=== PATIENT | female | born 1955 | race Caucasian/White ===

== ENCOUNTER → 2020-06-24 | Day surgery (SDC) | payer OTHER ==
[~2020-06-24] MED LIST: AMLODIPINE BES2.5 MG PO; BACLOFEN 10MG T10 MG PO; DOXYCYCLINE HY100 MG PO; FLAGYL250 MG PO; HCTZ25 MG PO; MEDROL 4MG DOSEP4 MG PO; NAPROXEN500 MG PO; PANTOPRAZOLE SO40 MG PO; VALSARTAN-HCTZ1 EAC1 PO; VALSARTAN80 MG PO
[2020-06-24 07:41] LABS: HCT 50.3 % (37.0-47.0); MCH 29.9 pg (25.0-31.0); MCHC 33.8 g/dL (32.0-36.0); MCV 88.4 fL (78.0-100.0); MPV 10.7 fL (6.0-9.5); RBC 5.69 M/uL (4.20-5.40); RDW 12.3 % (11.5-14.0); WBC 6.7 K/uL (4.0-10.5)
[2020-06-24 08:07] LABS: ALBUMIN 4.1 g/dL (3.4-5.0); BILIRUBIN - TOTAL 0.3 mg/dL (0.2-1.0); BUN/CREAT RATIO (CALC) 18.8 RATIO; CREATININE 0.69 mg/dL (0.51-0.95); GLOBULIN (CALCULATION) 4.3 g/dL; POTASSIUM 3.8 mmol/L (3.5-5.1); TOTAL PROTEIN 8.4 g/dL (6.4-8.2)
== END | disposition home or self-care (01) ==
LOC: FAS 06:49
PROVIDERS: Surgery
DX: K29.50 Unspecified chronic gastritis without bleeding (principal); K52.9 Noninfective gastroenteritis and colitis, unspecified; K21.9 Gastro-esophageal reflux disease without esophagitis; I10 Essential (primary) hypertension; J30.9 Allergic rhinitis, unspecified; Z90.49 Acquired absence of other specified parts of digestive tract; Z87.891 Personal history of nicotine dependence; Z88.5 Allergy status to narcotic agent; Z88.8 Allergy status to other drugs, medicaments and biological substances; Z98.890 Other specified postprocedural states; Z98.51 Tubal ligation status; Z20.822 Contact with and (suspected) exposure to COVID-19
CPT/HCPCS: 36415; 80053; J2250; J2704; J7120

== ENCOUNTER → 2021-09-11 | Day surgery (SDC) | payer OTHER ==
[~2021-09-11] VITALS: Ht 165.1 cm; Wt 74.8 kg
[~2021-09-11] MED LIST changes: +ALLEGRA ALLERG180 MG PO; +COQ-10100 MG PO; +LEVSIN-SL0.125 MG SL; +VITAMIN B122500 MCG PO; +VITAMIN D PO
[2021-09-11 08:08] LABS: HCT 43.3 % (37.0-47.0); MCH 27.1 pg (25.0-31.0); MCHC 32.3 g/dL (32.0-36.0); MCV 83.9 fL (78.0-100.0); MPV 10.3 fL (6.0-9.5); RBC 5.16 M/uL (4.20-5.40); RDW 12.5 % (11.5-14.0); WBC 6.2 K/uL (4.0-10.5)
[2021-09-11 08:15] LABS: ALBUMIN 3.7 g/dL (3.4-5.0); BILIRUBIN - TOTAL 0.4 mg/dL (0.2-1.0); BUN/CREAT RATIO (CALC) 16.4 RATIO; CREATININE 0.73 mg/dL (0.51-0.95); GLOBULIN (CALCULATION) 4.4 g/dL; POTASSIUM 3.1 mmol/L (3.5-5.1); TOTAL PROTEIN 8.1 g/dL (6.4-8.2)
== END | disposition home or self-care (01) ==
LOC: FAS 07:17
PROVIDERS: Surgery
DX: K52.9 Noninfective gastroenteritis and colitis, unspecified (principal); K62.5 Hemorrhage of anus and rectum; I10 Essential (primary) hypertension; Z88.5 Allergy status to narcotic agent; Z88.8 Allergy status to other drugs, medicaments and biological substances; Z79.899 Other long term (current) drug therapy; Z87.891 Personal history of nicotine dependence
CPT/HCPCS: 36415; 80053; J2704; J7120